=== PATIENT | female | born 1995 | race American Indian/Alaskan Native ===

== ENCOUNTER 2019-08-11 10:57 | Emergency (ER) | payer SELFPAY ==
[2019-08-11 11:04] VITALS: BP 119/54
[2019-08-11] MEDS ORDERED: METOCLOPRAMIDE 10 MG/2 ML INJ IV ONE (12:05)
[2019-08-11] MEDS ORDERED: diphenhydrAMINE 50 MG/ML VIAL IV ONE (12:05)
[2019-08-11] MEDS ORDERED: SODIUM CHLORIDE 0.9% 1000 ML 1,000 ML IV ONE (12:05)
[2019-08-11 12:49] LABS: Bacteria,Urine 1+ /HPF (Negative); Bilirubin,Urine NEG (Negative); Blood,Urine NEG (Negative); Color,Urine Yellow (Yellow); Mucus,Urine FEW /HPF; Protein,Urine <15 mg/dL mg/dL (Negative); Urobilinogen,Urine < 2.0 mg/dL (<2.0)
[2019-08-11 12:51] LABS: HCG Qualitative,Urine Negative (Negative)
--- NOTE | 2019-08-11 13:16 | Emergency Department Report ---
ED Headache HPI - General Chief Complaint: Headache Stated Complaint: HEADACHE Time Seen by Provider: 08/11/19 11:59 - History of Present Illness Initial Comments: This is a 23-year-old female nontoxic, well nourished in appearance, no acute signs of distress presents to the ED with c/o of acute headache x2 weeks. Stated has been taking OTC medications with minimal to no relief. Patient describes headache as diffuse with level of 8 out of 10. Patient denies thunderclap headache. Patient denies any radiation of pain. Patient denies any head trauma. Patient denies any visual changes. Patient denies worse headache. Patient stated that darkness makes headache better and bright lights make the headache worse. Patient denies any numbness, tingling, fever, chills, nausea, vomiting, chest pain, shortness of breath, stiff neck. Patient denies facial drooping or one sided weakness. Patient denies any radiation of pain. Patient denies any allergies or significant PMH. Timing/Duration: other (2 weeks) Quality: moderate Head Injury Location: other (diffuse) Recent Head Trauma: no recent headache/trauma Associated Symptoms: denies symptoms. denies: confusion, fatigue, facial pain, fever/chills, flushing, loss of consciousness, nausea/vomiting, nasal congestion, nasal drainage, numbness in legs/feet, rash, seizures, sinus infection, stiff neck, vision changes, weakness Allergies/Adverse Reactions: Allergies No Known Allergies Allergy (Unverified 08/11/19 10:59) Home Medications: Ambulatory Orders Butalb/Acetaminophen/Caffeine [Fioricet 50-300-40 mg CAP] 1 cap PO Q6HR PRN #12 cap 08/11/19 Sulfamethoxazole/Trimethoprim [Bactrim DS TAB] 1 each PO BID #14 tablet 08/11/19 ED Review of Systems ROS: Stated complaint: HEADACHE Other details as noted in HPI Constitutional: denies: chills, fever Eyes: denies: eye pain, eye discharge, vision change ENT: denies: ear pain, throat pain Respiratory: denies: cough, shortness of breath, wheezing Cardiovascular: denies: chest pain, palpitations Endocrine: no symptoms reported Gastrointestinal: denies: abdominal pain, nausea, diarrhea Genitourinary: denies: urgency, dysuria, discharge Musculoskeletal: denies: back pain, joint swelling, arthralgia Skin: denies: rash, lesions Neurological: headache. denies: weakness, paresthesias Psychiatric: denies: anxiety, depression Hematological/Lymphatic: denies: easy bleeding, easy bruising ED Past Medical Hx - Past Medical History Previous Medical History?: No - Surgical History Past Surgical History?: No - Social History Smoking Status: Never Smoker Substance Use Type: None - Medications Home Medications: Home Medications Medication Instructions Recorded Confirmed Last Taken Type Butalb/Acetaminophen/Caffeine 1 cap PO Q6HR PRN #12 cap 08/11/19 Unknown Rx [Fioricet 50-300-40 mg CAP] Sulfamethoxazole/Trimethoprim 1 each PO BID #14 tablet 08/11/19 Unknown Rx [Bactrim DS TAB] ED Physical Exam - General Limitations: No Limitations General appearance: alert, in no apparent distress - Head Head exam: Present: atraumatic, normocephalic - Eye Eye exam: Present: normal appearance, PERRL, EOMI - Neck Neck exam: Present: normal inspection, full ROM. Absent: tenderness, meningismus, lymphadenopathy - Extremities Exam Extremities exam: Present: normal inspection, full ROM - Back Exam Back exam: Present: normal inspection, full ROM. Absent: tenderness, CVA tenderness (R), CVA tenderness (L), muscle spasm, paraspinal tenderness, vertebral tenderness, rash noted - Neurological Exam Neurological exam: Present: alert, oriented X3, normal gait - Expanded Neurological Exam Expanded Patient oriented to: Present: person, place, time Cranial nerves: EOM's Intact: Normal, Facial Sensation: Normal Cerebellar function: Finger to Nose: Normal Upper motor neuron: Pronator Drift: Normal, Sensory Extinction: Normal Motor strength exam: RUE: 5, LUE: 5, RLE: 5, LLE: 5 Best Eye Response (Curtis): (4) open spontaneously Best Motor Response (Jason): (6) obeys commands Best Verbal Response (Curtis): (5) oriented Jason Total: 15 - Psychiatric Psychiatric exam: Present: normal affect, normal mood - Skin Skin exam: Present: warm, dry, intact, normal color. Absent: rash ED Course Vital Signs 08/11/19 11:03 Temperature 98.5 F Pulse Rate 92 H Respiratory 18 Rate Blood Pressure 119/54 O2 Sat by Pulse 100 Oximetry - Reevaluation(s) Reevaluation #1: 08/11/19 13:23 Patient is speaking in full sentences with no signs of distress noted. ED Medical Decision Making - Medical Decision Making This is a 23-year-old female that presents with headache and UTI. Patient is stable and was examined by me. Patient is neurologically stable. There is no stiff neck or neck pain. Vital signs are stable. Patient is afebrile. Urine shows elevated WBCs and leukocytes. CT of head is unremarkable and dictated by the radiologist. Patient is notified of the ct results with no questions noted by the patient. Patient received Benadryl, Reglan, and 1 L of normal saline which the patient stated that headache has subsided and resolved. Patient was instructed not to operate any machinery after discharged due to drowsiness of Benadryl. Patient stated that a family member will drive patient home. Patient is discharged with Fioricet. Patient was referred to Follow-up with a primary care/neurologist doctor in 3-5 days or if symptoms worsen and continue return to emergency room as soon as possible. At time of discharge, the patient does not seem toxic or ill in appearance. No acute signs of distress noted. Patient agrees to discharge treatment plan of care. No further questions noted by the patient. Critical care attestation.: If time is entered above; I have spent that time in minutes in the direct care of this critically ill patient, excluding procedure time. ED Disposition Clinical Impression: Headache Qualifiers: Headache type: unspecified Headache chronicity pattern: acute headache Intractability: not intractable Qualified Code(s): R51 - Headache UTI (urinary tract infection) Qualifiers: Urinary tract infection type: site unspecified Hematuria presence: without hematuria Qualified Code(s): N39.0 - Urinary tract infection, site not specified Disposition: DC-01 TO HOME OR SELFCARE Is pt being admited?: No Does the pt Need Aspirin: No Condition: Stable Instructions: Acute Headache (ED), Urinary Tract Infection in Women (ED) Additional Instructions: Follow-up with a primary care doctor in 3-5 days or if symptoms worsen and continue return to emergency room as soon as possible. Prescriptions: Sulfamethoxazole/Trimethoprim [Bactrim DS TAB] 1 each PO BID #14 tablet Butalb/Acetaminophen/Caffeine [Fioricet 50-300-40 mg CAP] 1 cap PO Q6HR PRN #12 cap PRN Reason: Headache Referrals: PRIMARY CAREMD [Primary Care Provider] - 3-5 Days MARTHA KINCAID MD [Staff Physician] - 3-5 Days [facility] [Provider Group] - 3-5 Days Forms: Work/School Release Form(ED)
--- NOTE | 2019-08-11 14:11 | Cat Scan Report ---
NONENHANCED CT SCAN OF THE HEAD: INDICATION / CLINICAL INFORMATION: 23 years Female; headache. TECHNIQUE: Routine CT head without contrast. All CT scans at this location are performed using CT dos e reduction for ALARA by means of automated exposure control. COMPARISON: None. FINDINGS: BRAIN / INTRACRANIAL CONTENTS: No acute hemorrhage, mass effect, midline shift, hydrocephalus, or ac little traverse, large territorial infarct. No chronic infarct or focal atrophy. Normal brain volume and ventricu lar/sulcal size for age. No significant white matter abnormality. CRANIOCERVICAL JUNCTION: No significant abnormality. ORBITS: No significant abnormality of visualized orbits. SINUSES / MASTOIDS: No significant abnormality of the visualized paranasal sinuses or mastoid air yoandy ls. ADDITIONAL FINDINGS: None. IMPRESSION: Normal nonenhanced CT scan of the head Signer Name: Ajith Duron MD Signed: 08/11/2019 2:07 PM Workstation Name: [id number]
== END 2019-08-11 14:58 | disposition home or self-care (01) ==
LOC: ED 10:57
DX: R51 Headache (principal); N39.0 Urinary tract infection, site not specified; Z79.899 Other long term (current) drug therapy
CPT/HCPCS: 70450; 81001; 81025; 87086; 96374; 96375; 99284; J1200; J2765; J7030

== ENCOUNTER 2019-08-20 09:11 | Emergency (ER) | payer OTHER ==
[2019-08-20 09:27] VITALS: BP 115/52
--- NOTE | 2019-08-20 09:51 | Emergency Department Report ---
Chief Complaint: Headache Stated Complaint: HEADACHE Time Seen by Provider: 08/20/19 09:43 - HPI History of Present Illness: Patient is a 23-year-old female who presents emergency room for a work excuse. She states that yesterday she was driving to work with the heat on high and when she got to work they took her temperature with a laser and it was slightly elevated and they sent her home. she is not able to tell me what the temperature was. She states that she does not feel sick at all. She states that she has not been having chills or running a fever at home. She states that they just wanted her to be checked out when she needs an excuse for work. She denies any chest pain, shortness of breath, nausea, vomiting, diarrhea, fever, cough, chills, headache, neck pain, neck stiffness, any symptoms at all. She denies any past medical history. She denies any allergies to medications. Vitals are completely normal Patient has no symptoms or any complaints Patient has had no recent travel or no known contact with COVID positive patient She presents to the emergency room for a work excuse Patient is presenting with a nonmedical emergency at this time Medical screening performed and there is no threat to life or limb at this time Patient will be referred to a primary care doctor Discussed in detail strict return precautions with patient - Exam Vital Signs: Vital Signs 08/20/19 09:19 Temperature 98.6 F Pulse Rate 70 Respiratory 16 Rate Blood Pressure 115/52 O2 Sat by Pulse 97 Oximetry MSE screening note: Focused history and physical exam performed. ED Disposition for MSE Clinical Impression: Encounter for medical screening examination Disposition: Z- MED SCREENING EXAM-LEFT Is pt being admited?: No Does the pt Need Aspirin: No Condition: Stable Additional Instructions: Please follow-up with a primary care doctor. Please use a oral thermometer when taking your temperature. Return to the emergency room for any new or worsening symptoms including but not limited to high fevers not controlled by Tylenol, chest pain, shortness of breath, difficulty breathing, unable to tolerate by mouth intake, etc. Referrals: MARTHA KINCAID MD [Staff Physician] - 3-5 Days [facility] [Provider Group] - 3-[address] [facility] [Outside] - 3-5 Days [facility] [Outside] - 3-5 Days Time of Disposition: 09:50 Print Language: AMHARIC
== END 2019-08-20 10:14 | disposition left against medical advice (07) ==
LOC: ED 09:11
DX: Z13.9 Encounter for screening, unspecified (principal)
CPT/HCPCS: 99282

== ENCOUNTER 2019-12-31 15:16 | Emergency (ER) | payer SELFPAY ==
[2019-12-31 15:23] VITALS: BP 106/65
== END 2019-12-31 16:05 | disposition left against medical advice (07) ==
LOC: ED 15:16
DX: H57.89 Other specified disorders of eye and adnexa (principal); Z53.21 Procedure and treatment not carried out due to patient leaving prior to being seen by health care provider

== ENCOUNTER 2020-02-01 07:29 | Emergency (ER) | payer SELFPAY ==
[2020-02-01 07:55] VITALS: BP 103/50
--- NOTE | 2020-02-01 10:47 | Emergency Department Report ---
ED General Adult HPI - General Chief complaint: Extremity Problem,Nontraumatic Stated complaint: LFT ARM NUMB Time Seen by Provider: 02/01/20 10:24 Source: patient Mode of arrival: Ambulatory Limitations: No Limitations - History of Present Illness Initial comments: 24-year-old -[place] female patient presents with complaints of bilateral foot pain x1 year and left arm, neck, and hand pain intermittently x1 week. She denies any injuries to her feet, neck, arm, or hand. 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 She also denies any current pain in her feet, however states it usually occurs after standing on her feet for extended periods of time and resolves with resting. She denies any history of cancer, stiffness in the neck, or decreased range of motion of the neck. No current neck pain per patient. She states there is intermittent numbness and tingling in her hand, but denies any headache, vision changes, difficulty with speech/ambulation, or weakness in her limbs. She rates her overall pain as a 6/10 in severity and denies trying any OTC medications for pain. Patient also reports that she believes she was diagnosed with early signs of MS at the age of 15, however she has not followed up on this. - Related Data Previous Rx's Medication Instructions Recorded Last Taken Type Butalb/Acetaminophen/Caffeine 1 cap PO Q6HR PRN #12 cap 08/11/19 Unknown Rx [Fioricet 50-300-40 mg CAP] Sulfamethoxazole/Trimethoprim 1 each PO BID #14 tablet 08/11/19 Unknown Rx [Bactrim DS TAB] Allergies Allergy/AdvReac Type Severity Reaction Status Date / Time No Known Allergies Allergy Verified 12/31/19 15:17 ED Review of Systems ROS: Stated complaint: LFT ARM NUMB Other details as noted in HPI Constitutional: denies: chills, diaphoresis, fever, malaise, weakness Respiratory: denies: shortness of breath Cardiovascular: denies: chest pain Gastrointestinal: denies: abdominal pain Musculoskeletal: arthralgia. denies: joint swelling Skin: denies: change in color ED Past Medical Hx - Past Medical History Previous Medical History?: No - Surgical History Past Surgical History?: No - Social History Smoking Status: Never Smoker Substance Use Type: None - Medications Home Medications: Home Medications Medication Instructions Recorded Confirmed Last Taken Type Butalb/Acetaminophen/Caffeine 1 cap PO Q6HR PRN #12 cap 08/11/19 Unknown Rx [Fioricet 50-300-40 mg CAP] Sulfamethoxazole/Trimethoprim 1 each PO BID #14 tablet 08/11/19 Unknown Rx [Bactrim DS TAB] ED Physical Exam - General Limitations: No Limitations General appearance: alert, in no apparent distress - Head Head exam: Present: atraumatic, normocephalic - Eye Eye exam: Present: normal appearance - ENT ENT exam: Present: mucous membranes moist - Neck Neck exam: Present: tenderness (Mild tenderness to palpation of the left trapezius muscle; no vertebral tenderness or deformity noted), full ROM. Absent: lymphadenopathy - Respiratory Respiratory exam: Present: normal lung sounds bilaterally. Absent: respiratory distress - Cardiovascular Cardiovascular Exam: Present: regular rate, normal rhythm. Absent: systolic murmur, diastolic murmur, rubs, gallop - Extremities Exam Extremities exam: Present: normal inspection, full ROM - Expanded Upper Extremity Exam Left Shoulder Exam: Present: normal inspection, full ROM Upper Arm exam: Present: normal inspection, full ROM Elbow exam: Present: normal inspection, full ROM Forearm Wrist exam: Present: normal inspection, full ROM Hand Wrist exam: Present: normal inspection, full ROM Neuro motor exam: Present: wrist extension intact, thumb opposition intact, thumb IP flexion intact, thumb adduction intact, fingers 2-5 abduction intact Vascular: Present: normal capillary refill. Absent: pulse deficit radial art, pulse deficit ulnar art - Expanded Lower Extremity Exam Right Ankle exam: Present: normal inspection, full ROM Foot/Toe exam: Present: normal inspection, full ROM. Absent: tenderness, swelling, deformity, erythema Neuro vascular tendon exam: Absent: pulse deficit, motor deficit, sensory deficit Left Ankle exam: Present: normal inspection, full ROM Foot/Toe exam: Present: normal inspection, full ROM. Absent: tenderness, swelling, deformity, erythema Neuro vascular tendon exam: Absent: no vascular compromise, motor deficit, sensory deficit - Back Exam Back exam: Present: normal inspection - Neurological Exam Neurological exam: Present: alert, oriented X3 ED Course Vital Signs 02/01/20 07:51 Temperature 99.2 F Pulse Rate 62 Respiratory 18 Rate Blood Pressure 103/50 O2 Sat by Pulse 100 Oximetry ED Medical Decision Making - Medical Decision Making 24-year-old -[place] female patient presents with complaints of bilateral foot pain x1 year and left arm, neck, and hand pain intermittently x1 week. She denies any injuries to her feet, neck, arm, or hand. 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 She also denies any current pain in her feet, however states it usually occurs after standing on her feet for extended periods of time and resolves with resting. She denies any history of cancer, stiffness in the neck, or decreased range of motion of the neck. No current neck pain per patient. She states there is intermittent numbness and tingling in her hand, but denies any headache, vision changes, difficulty with speech/ambulation, or weakness in her limbs. She rates her overall pain as a 6/10 in severity and denies trying any OTC medications for pain. Patient also reports that she believes she was diagnosed with early signs of MS at the age of 15, however she has not followed up on this. On exam, patient is neurologically intact. No abnormalities are noted of the feet, left shoulder, or cervical spine. She has some mild tenderness to palpation of the left trapezius muscle. Left arm and hand symptoms possibly due to cervical radiculopathy, however given patient's history of signs of early onset of MS, recommend follow-up with a primary care provider and possibly ne urology. BP on recheck is 110/65. Her vitals are normal, she is well- appearing, she is stable for discharge home and outpatient treatment. Referral given for Dr. Del Rio. Strict return precautions were discussed in detail with patient who verbalizes understanding. Critical care attestation.: If time is entered above; I have spent that time in minutes in the direct care of this critically ill patient, excluding procedure time. ED Disposition Clinical Impression: Chronic pain of both feet, Paresthesia of left upper extremity Disposition: MED SCREENING EXAM-LEFT Is pt being admited?: No Condition: Stable Instructions: Cervical Radiculopathy (ED) Referrals: MARTHA DEL RIO MD [Staff Physician] - 2-3 Days Forms: Work/School Release Form(ED)
== END 2020-02-01 11:48 | disposition left against medical advice (07) ==
LOC: ED 07:29
DX: Z20.2 Contact with and (suspected) exposure to infections with a predominantly sexual mode of transmission (principal); Z53.21 Procedure and treatment not carried out due to patient leaving prior to being seen by health care provider

== ENCOUNTER 2020-03-08 11:18 | Emergency (ER) | payer SELFPAY ==
[2020-03-08 11:33] VITALS: BP 103/59
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
== END 2020-03-08 12:49 | disposition home or self-care (01) ==
LOC: ED 11:18
DX: S13.4XXA Sprain of ligaments of cervical spine, initial encounter (principal); Z79.899 Other long term (current) drug therapy; V49.9XXA Car occupant (driver) (passenger) injured in unspecified traffic accident, initial encounter; Y93.89 Activity, other specified; Y92.488 Other paved roadways as the place of occurrence of the external cause; Y99.8 Other external cause status
CPT/HCPCS: 72040; 72100; 99283

== ENCOUNTER 2020-06-09 07:00 | Emergency (ER) | payer SELFPAY ==
--- NOTE | 2020-06-09 08:12 | Emergency Department Report ---
ED Female HPI - General Chief complaint: Abdominal Pain Stated complaint: PELVIC PAIN Source: patient Mode of arrival: Ambulatory Limitations: No Limitations - History of Present Illness Initial comments: 24-year-old female presents to the emergency room complaining of pelvic pain and lower back pain and urinary frequency. She denies abdominal pain she denies abnormal vaginal discharge she denies painful urination. Her last menstrual period was May 09, 2020. She denies any past medical history. She is in no acute distress. MD Complaint: pelvic pain Location: suprapubic Worsens with: none Are you Now?: No Associated Symptoms: denies: vaginal discharge, vaginal bleeding, abdominal pain, nausea/vomiting, fever/chills, headaches, loss of appetite, dysuria, hematuria, rash, seizure, shortness of breath, syncope, weakness - Related Data Sexually active: Yes Previous Rx's Medication Instructions Recorded Last Taken Type Butalb/Acetaminophen/Caffeine 1 cap PO Q6HR PRN #12 cap 08/11/19 Unknown Rx [Fioricet 50-300-40 mg CAP] Sulfamethoxazole/Trimethoprim 1 each PO BID #14 tablet 08/11/19 Unknown Rx [Bactrim DS TAB] Cyclobenzaprine [Flexeril] 10 mg PO QHS PRN #10 tablet 03/08/20 Unknown Rx Naproxen 500 mg PO Q12H PRN #12 tablet 03/08/20 Unknown Rx Allergies Allergy/AdvReac Type Severity Reaction Status Date / Time No Known Allergies Allergy Verified 06/09/20 07:16 ED Review of Systems ROS: Stated complaint: PELVIC PAIN Other details as noted in HPI Comment: All other systems reviewed and negative Constitutional: no symptoms reported Respiratory: no symptoms reported Cardiovascular: as per HPI Endocrine: no symptoms reported Gastrointestinal: as per HPI Genitourinary: as per HPI Musculoskeletal: back pain Neurological: denies: headache, weakness, numbness, paresthesias Psychiatric: denies: as per HPI Hematological/Lymphatic: as per HPI ED Past Medical Hx - Past Medical History Previous Medical History?: No - Surgical History Past Surgical History?: No - Social History Smoking Status: Never Smoker Substance Use Type: None - Medications Home Medications: Home Medications Medication Instructions Recorded Confirmed Last Taken Type Butalb/Acetaminophen/Caffeine 1 cap PO Q6HR PRN #12 cap 08/11/19 Unknown Rx [Fioricet 50-300-40 mg CAP] Sulfamethoxazole/Trimethoprim 1 each PO BID #14 tablet 08/11/19 Unknown Rx [Bactrim DS TAB] Cyclobenzaprine [Flexeril] 10 mg PO QHS PRN #10 tablet 03/08/20 Unknown Rx Naproxen 500 mg PO Q12H PRN #12 tablet 03/08/20 Unknown Rx ED Physical Exam - General Limitations: No Limitations General appearance: alert, in no apparent distress - Head Head exam: Present: atraumatic - Eye Eye exam: Present: normal appearance - ENT ENT exam: Present: normal exam - Neck Neck exam: Present: normal inspection - Respiratory Respiratory exam: Present: normal lung sounds bilaterally - Cardiovascular Cardiovascular Exam: Present: regular rate, normal heart sounds - GI/Abdominal GI/Abdominal exam: Present: soft. Absent: tenderness - Rectal Rectal exam: Present: deferred - Extremities Exam Extremities exam: Present: normal inspection - Back Exam Back exam: Present: normal inspection, full ROM. Absent: CVA tenderness (R), CVA tenderness (L) - Neurological Exam Neurological exam: Present: alert, oriented X3 - Psychiatric Psychiatric exam: Present: normal affect - Skin Skin exam: Present: warm, dry ED Course Vital Signs 06/09/20 06/09/20 07:17 10:34 Temperature 98.2 F Pulse Rate 71 Respiratory 18 Rate Blood Pressure 116/41 Blood Pressure 124/72 [Right] O2 Sat by Pulse 100 Oximetry - Reevaluation(s) Reevaluation #1: 06/09/20 10:23 Patient now denies pelvic pain states she just feels like it is not normal. I reviewed the results of urine with the patient and emphasized the importance of follow-up for additional STD screening ED Medical Decision Making - Medical Decision Making 24-year-old female complaining of low back pain and pelvic pain. Urinalysis complete negative for urinary tract infection patient's not . I discussed findings with the patient and the need for her to have complete STD screening either at local clinic PCP or referrals given to Dr. Del Rio patient verbalizes understanding - Differential Diagnosis UTI urinary frequency vaginitis Critical Care Time: No Critical care attestation.: If time is entered above; I have spent that time in minutes in the direct care of this critically ill patient, excluding procedure time. ED Disposition Clinical Impression: Pelvic pain Disposition: DC-01 TO HOME OR SELFCARE Is pt being admited?: No Does the pt Need Aspirin: No Condition: Stable Instructions: Pelvic Pain, Female, [id number], Abdominal Pain (ED) Additional Instructions: Your urine test today shows no sign of urinary tract infection. This does not exclude sexually transmitted diseases. It is not important that you follow-up with your primary care doctor or Dr. Del Rio or the local STD department to get screened for sexually transmitted diseases Referrals: PRIMARY CARE, [Primary Care Provider] - 3-[address] [facility] [Outside] - 3-5 Days Time of Disposition: 10:23
[2020-06-09 10:01] LABS: Bilirubin,Urine NEG (Negative); Blood,Urine NEG (Negative); Color,Urine Yellow (Yellow); Mucus,Urine 2+ /HPF; RBC,Urine < 1.0 /HPF (0.0-6.0)
[2020-06-09 10:17] LABS: HCG Qualitative,Urine Negative (Negative)
[2020-06-09 10:35] VITALS: BP 124/72
== END 2020-06-09 10:35 | disposition home or self-care (01) ==
LOC: ED 07:00
DX: R10.2 Pelvic and perineal pain (principal); Z79.899 Other long term (current) drug therapy
CPT/HCPCS: 81001; 81025; 99283

== ENCOUNTER 2020-11-20 08:24 | Emergency (ER) | payer OTHER ==
[2020-11-20 08:57] VITALS: BP 99/67
[2020-11-20 10:42] LABS: Hematocrit 30.5 % (30.3-42.9); Hemoglobin 9.9 gm/dl (10.1-14.3); Mean Corpuscular HGB Conc 33 % (30-34); Platelet Count 308 K/mm3 (140-440)
--- NOTE | 2020-11-20 11:48 | Emergency Department Report ---
ED Female HPI - General Chief complaint: Vaginal Bleeding Stated complaint: PAIN AND BLEEDING Time Seen by Provider: 11/20/20 11:42 Source: patient Mode of arrival: Ambulatory Limitations: No Limitations - History of Present Illness Initial comments: Patient is a 25-year-old female presents emergency room complaints of vaginal bleeding that began yesterday. She states that she took a Plan B pill approximately 2 weeks ago. She states her last menstrual cycle was 11/09/2020. Patient states that she saw her TIP MENDER a couple days ago but was not having bleeding at that time. She states that she is currently being treated for BV with Flagyl. She has some mild abdominal cramping. She denies any fever, nausea, vomiting, diarrhea, urinary symptoms, back pain. PMHx none. - Related Data Previous Rx's Medication Instructions Recorded Last Taken Type Butalb/Acetaminophen/Caffeine 1 cap PO Q6HR PRN #12 cap 08/11/19 Unknown Rx [Fioricet 50-300-40 mg CAP] Sulfamethoxazole/Trimethoprim 1 each PO BID #14 tablet 08/11/19 Unknown Rx [Bactrim DS TAB] Cyclobenzaprine [Flexeril] 10 mg PO QHS PRN #10 tablet 03/08/20 Unknown Rx Naproxen 500 mg PO Q12H PRN #12 tablet 03/08/20 Unknown Rx Allergies Allergy/AdvReac Type Severity Reaction Status Date / Time No Known Allergies Allergy Verified 06/09/20 07:16 ED Review of Systems ROS: Stated complaint: PAIN AND BLEEDING Other details as noted in HPI Comment: All other systems reviewed and negative ED Past Medical Hx - Past Medical History Previous Medical History?: No - Surgical History Past Surgical History?: No - Social History Smoking Status: Never Smoker Substance Use Type: None - Medications Home Medications: Home Medications Medication Instructions Recorded Confirmed Last Taken Type Butalb/Acetaminophen/Caffeine 1 cap PO Q6HR PRN #12 cap 08/11/19 Unknown Rx [Fioricet 50-300-40 mg CAP] Sulfamethoxazole/Trimethoprim 1 each PO BID #14 tablet 08/11/19 Unknown Rx [Bactrim DS TAB] Cyclobenzaprine [Flexeril] 10 mg PO QHS PRN #10 tablet 03/08/20 Unknown Rx Naproxen 500 mg PO Q12H PRN #12 tablet 11/19/20 Unknown Rx ED Physical Exam - General Limitations: No Limitations General appearance: alert, in no apparent distress - Head Head exam: Present: atraumatic, normocephalic - Eye Eye exam: Present: normal appearance - ENT ENT exam: Present: mucous membranes moist - Respiratory Respiratory exam: Present: normal lung sounds bilaterally. Absent: respiratory distress, wheezes, rales, rhonchi, stridor, chest wall tenderness, accessory m uscle use, decreased breath sounds, prolonged expiratory - Cardiovascular Cardiovascular Exam: Present: regular rate, normal rhythm, normal heart sounds. Absent: systolic murmur, diastolic murmur, rubs, gallop - GI/Abdominal GI/Abdominal exam: Present: soft, normal bowel sounds. Absent: distended, tenderness, guarding, rebound, rigid - Neurological Exam Neurological exam: Present: alert, oriented X3 - Psychiatric Psychiatric exam: Present: normal affect, normal mood - Skin Skin exam: Present: warm, dry, intact ED Course Vital Signs 11/20/20 08:56 Temperature 98.3 F Pulse Rate 81 Respiratory 16 Rate Blood Pressure 99/67 O2 Sat by Pulse 100 Oximetry ED Medical Decision Making - Lab Data Result diagrams: 11/20/20 09:54 Lab Results 11/20/20 11/20/20 Range/Units 09:54 11:55 WBC 8.1 (4.5-11.0) K/mm3 RBC 5.00 (3.65-5.03) M/mm3 Hgb 9.9 L (10.1-14.3) gm/dl Hct 30.5 (30.3-42.9) % MCV 61 L (79-97) fl MCH 20 L (28-32) pg MCHC 33 (30-34) % RDW 22.9 H (13.2-15.2) % Plt Count 308 (140-440) K/mm3 Add Manual Diff Complete Total Counted 100 Seg Neuts % (Manual) 71.0 H (40.0-70.0) % Lymphocytes % (Manual) 22.0 (13.4-35.0) % Monocytes % (Manual) 4.0 (0.0-7.3) % Eosinophils % (Manual) 2.0 (0.0-4.3) % Basophils % (Manual) 1.0 (0.0-1.8) % Nucleated RBC % Not Reportable Seg Neutrophils # Man 5.8 (1.8-7.7) K/mm3 Band Neutrophils # 0.0 K/mm3 Lymphocytes # (Manual) 1.8 (1.2-5.4) K/mm3 Abs React Lymphs (Man) 0.0 K/mm3 Monocytes # (Manual) 0.3 (0.0-0.8) K/mm3 Eosinophils # (Manual) 0.2 (0.0-0.4) K/mm3 Basophils # (Manual) 0.1 (0.0-0.1) K/mm3 Metamyelocytes # 0.0 K/mm3 Myelocytes # 0.0 K/mm3 Promyelocytes # 0.0 K/mm3 Blast Cells # 0.0 K/mm3 WBC Morphology Not Reportable Hypersegmented Neuts Not Reportable Hyposegmented Neuts Not Reportable Hypogranular Neuts Not Reportable Smudge Cells Not Reportable Toxic Granulation Not Reportable Toxic Vacuolation Not Reportable Dohle Bodies 2+ Pelger-Huet Anomaly Not Reportable Eduardo Rods Not Reportable Platelet Estimate Consistent w auto Clumped Platelets Not Reportable Plt Clumps, EDTA Not Reportable Large Platelets Few Giant Platelets Rare Platelet Satelliting Not Reportable Plt Morphology Comment Not Reportable RBC Morphology Not Reportable Dimorphic RBCs Not Reportable Polychromasia Not Reportable Hypochromasia 2+ Poikilocytosis Not Reportable Anisocytosis 1+ Microcytosis 2+ Macrocytosis Not Reportable Spherocytes Not Reportable Pappenheimer Bodies Not Reportable Sickle Cells Not Reportable Target Cells Not Reportable Tear Drop Cells Not Reportable Ovalocytes Not Reportable Helmet Cells Not Reportable Alvarez-Mclendon-Chisholm Bodies Not Reportable [place] Rings Not Reportable [place] Cells Not Reportable Bite Cells Not Reportable Crenated Cell Not Reportable Elliptocytes Not Reportable Acanthocytes (Spur) Not Reportable Rouleaux Not Reportable Hemoglobin C Crystals Not Reportable Schistocytes Not Reportable Malaria parasites Not Reportable Tavon Bodies Not Reportable Hem Pathologist Commnt No HCG, Quant < 2 (0-4) mIU/mL - Medical Decision Making Patient is a 25-year-old female presents emergency room complaints of vaginal bleeding that began yesterday. She states that she took a Plan B pill approximately 2 weeks ago. She states her last menstrual cycle was 11/09/2020. Patient states that she saw her TIP MENDER a couple days ago but was not having bleeding at that time. She states that she is currently being treated for BV with Flagyl. She has some mild abdominal cramping. She denies any fever, nausea, vomiting, diarrhea, urinary symptoms, back pain. PMHx none. Vitals are stable. H&H is stable. Patient is not having any significant heavy bleeding, she states that she is only having to change a tampon every 3 hours. Patient is not having any pain currently. hCG quant is less than 2. Discussed all results with patient and answer questions. Patient likely having AUB from taking plan B pill, will have pt follow up with TIP MENDER for further evaluation. advised pt Please follow-up with your TIP MENDER. Follow-up with primary care doctor. Return to emergency room for any new or worsening symptoms. Discussed return precautions with patient. - Differential Diagnosis AUB, medication reaction, hormonal abnormality, ovarian cyst, fibroids Critical care attestation.: If time is entered above; I have spent that time in minutes in the direct care of this critically ill patient, excluding procedure time. ED Disposition Clinical Impression: Abnormal uterine bleeding (AUB) Disposition: DC-01 TO HOME OR SELFCARE Is pt being admited?: No Does the pt Need Aspirin: No Condition: Stable Instructions: Abnormal Uterine Bleeding Additional Instructions: Please follow-up with your TIP MENDER. Follow-up with primary care doctor. Return to emergency room for any new or worsening symptoms. Referrals: PRIMARY CARE,MD [Primary Care Provider] - 2-3 Days your, automatic lathe setter [Other] - 2-3 Days Time of Disposition: 12:59 Print Language: BHUTANESE
[2020-11-20 11:59] LABS: Mean Corpuscular Volume 61 fl (79-97); Red Cell Distribution Width 22.9 % (13.2-15.2)
[2020-11-20 17:30] LABS: Total Cells Counted 100
[2020-11-20 17:31] LABS: Anisocytosis 1+; Dohle Bodies 2+; Giant Platelets Rare; Hypochromasia 2+; Large Platelets Few; Platelet Estimate Consistent w Auto
== END 2020-11-20 15:53 | disposition home or self-care (01) ==
LOC: ED 08:24
DX: N93.8 Other specified abnormal uterine and vaginal bleeding (principal)
CPT/HCPCS: 36415; 84702; 85007; 85025; 99283